=== PATIENT | male | born 1995 | race Caucasian/White ===

== ENCOUNTER 2016-10-23 13:59 | Emergency (ER) | payer BC, OTHER ==
[~2016-10-23] VITALS: Ht 177.8 cm; Wt 70.9 kg
[2016-10-23 14:45] LABS: HEMATOCRIT 40.1 % (38.0-50.0); MCH 29.4 PG (29.0-34.0); MCHC 32.2 G/DL (30.0-36.0); MCV 91.3 FL (86-99); MEAN PLAT.VOLUME 9.7 uM^3 (9.0-12.4); PLATELET COUNT 195 K/uL (156-360); RBC DIS.WIDTH-CV 14.3 % (11.8-14.6); RED BLOOD COUNT 4.39 M/uL (4.00-5.50); WHITE BLOOD COUNT 8.6 K/uL (4.1-10.2)
[2016-10-23 14:56] LABS: CHLORIDE 111 mEq/L (99-109); POTASSIUM 4.4 mEq/L (3.7-5.4); SODIUM 145 mEq/L (136-147)
[2016-10-23 14:58] LABS: GLUCOSE 94 mg/dL (70-99)
[2016-10-23 14:59] LABS: ANION GAP 12 MEQ/L (2-14)
[2016-10-23 15:02] LABS: GFR ESTIMATE (CALCULATED) > 59 mL/min/; UREA NITROGEN (BUN) 14 mg/dL (9-23)
[2016-10-23] MEDS ORDERED: HALDOL5 MG PO ×2 (17:35→17:43)
[2016-10-23 18:26] VITALS: BP 116/81
== END 2016-10-23 18:56 | disposition home or self-care (01) ==
LOC: EME 13:59
PROVIDERS: Emergency Medicine
DX: F91.9 Conduct disorder, unspecified (principal); F84.0 Autistic disorder; F73 Profound intellectual disabilities; F63.9 Impulse disorder, unspecified
CPT/HCPCS: 80048; 80178; 85027; 90839; 99281; 99285; J1630; J2060

== ENCOUNTER 2018-05-01 19:07 | Emergency (ER) | payer BC, OTHER ==
[~2018-05-01] VITALS: Ht 177.8 cm; Wt 75.0 kg
[~2018-05-01 19:07] MED LIST: HALDOL5 MG PO
[2018-05-01 21:21] VITALS: BP 143/97
== END 2018-05-01 21:22 | disposition home or self-care (01) ==
LOC: EME → EDBD 19:07 → EME 21:22
DX: R11.10 Vomiting, unspecified (principal); F79 Unspecified intellectual disabilities; F84.0 Autistic disorder
CPT/HCPCS: 99281; 99284